=== PATIENT | female | born 1975 | race Caucasian/White ===

== ENCOUNTER 2022-05-01 08:11 | Emergency (ER) | payer MEDICAID ==
[~2022-05-01] VITALS: Ht 154.9 cm; Wt 62.6 kg
[2022-05-01 08:25] VITALS: BP 118/81
--- NOTE | 2022-05-01 08:25 | NUR ---
RIGHT SHOULDER PAIN UPON WAKING UP AT 0600,DENIES ANY TRAUMA
--- NOTE | 2022-05-01 09:15 | NUR ---
ARM SLING PLACE BY TECH
[2022-05-01] MEDS ORDERED: KETO10TA2 PO (09:30)
[2022-05-01] MEDS ORDERED: CYCL5TAB PO (09:30)
--- NOTE | 2022-05-01 09:35 | NUR ---
Patient discharged to home in stable condition. Written and verbal after care instructions given. Patient verbalizes understanding of instruction.
== END 2022-05-01 09:37 | disposition home or self-care (01) ==
LOC: ER 08:15
DX: M25.511 Pain in right shoulder (principal); Z79.899 Other long term (current) drug therapy
CPT/HCPCS: 73030-TC